=== PATIENT | female | born 1930 | race Caucasian/White ===

== ENCOUNTER → 2018-04-10 | Outpatient (CLI) | payer MEDICARE ==
[~2018-04-10] MED LIST: ATOR10TA52 PO; CALC600T10 PO; DONE10TA40 PO; LEVE250T18 PO
[2018-04-10 15:12] LABS: Basophils # (auto) 0 uL; Basophils % (auto) 0.5 % (0.0-2.0); Eosinophils # (auto) 0.2 uL; Eosinophils % (auto) 2.4 % (0.0-7.0); Hematocrit 36.2 % (36.0-46.0); Lymphocytes # (auto) 2.3 uL; Lymphocytes % (auto) 31.4 % (10.0-50.0); Mean Corpuscular Hemoglobin 29.8 pg (28.0-32.0); Mean Corpuscular Hgb Conc. 33.2 g/dL (32.0-36.0); Mean Corpuscular Volume 89.6 fL (80.0-100.0); Monocytes # (auto) 0.9 uL; Monocytes % (auto) 12.3 % (0.0-12.0); Neutrophils # (auto) 3.9 uL; Neutrophils % (auto) 53.4 % (37.0-80.0); Platelet Count (auto) 250 10^3/uL (140-450); Red Blood Cells 4.04 10^6/uL (4.0-5.20); Red Cell Distribution Width 13.6 % (11.8-14.3); White Blood Cell 7.3 10^3/uL (4.4-10.8)
[2018-04-10 15:53] LABS: Albumin 3.6 g/dL (3.4-5.0); BUN/Creatinine Ratio 14.5; Bilirubin, Total 0.5 mg/dL (0.2-1.0); Calcium 9.2 mg/dL (8.5-10.1); Potassium 4.3 mmol/L (3.5-5.1); Total Protein 7.8 g/dL (6.4-8.2)
== END | disposition home or self-care (01) ==
LOC: LAB 14:52
PROVIDERS: ATTEND Nurse Practitioner
DX: E78.5 Hyperlipidemia, unspecified (principal); E55.9 Vitamin D deficiency, unspecified
CPT/HCPCS: 36415; 80053; 80061; 82306; 85025

== ENCOUNTER 2018-05-29 19:38 | Inpatient (IN) | payer MEDICARE ==
[~2018-05-29] VITALS: Ht 162.6 cm; Wt 70.2 kg
[2018-05-29 20:50] LABS: Basophils # (auto) 0 uL; Basophils % (auto) 0.3 % (0.0-2.0); Eosinophils # (auto) 0 uL; Hematocrit 31.5 % (36.0-46.0); Hemoglobin 10.5 g/dL (12.2-16.2); Lymphocytes # (auto) 1.2 uL; Lymphocytes % (auto) 8.3 % (10.0-50.0); Mean Corpuscular Hemoglobin 30.2 pg (28.0-32.0); Mean Corpuscular Hgb Conc. 33.3 g/dL (32.0-36.0); Mean Corpuscular Volume 90.6 fL (80.0-100.0); Monocytes # (auto) 1.8 uL; Monocytes % (auto) 12.5 % (0.0-12.0); Neutrophils # (auto) 11.5 uL; Neutrophils % (auto) 78.9 % (37.0-80.0); Nucleated Red Blood Cells % 0.1 %; Platelet Count (auto) 211 10^3/uL (140-450); Red Blood Cells 3.48 10^6/uL (4.0-5.20); Red Cell Distribution Width 14.5 % (11.8-14.3); White Blood Cell 14.6 10^3/uL (4.4-10.8)
[2018-05-29 21:04] LABS: INR 0.93 (0.9-1.15); Partial Thromboplastin Time 28.3 sec (23.78-33.04)
[2018-05-29 21:13] LABS: Albumin 3.3 g/dL (3.4-5.0); BUN/Creatinine Ratio 14.8; Calcium 8.8 mg/dL (8.5-10.1); Magnesium 1.9 mg/dL (1.6-2.6); Potassium 5.2 mmol/L (3.5-5.1)
[2018-05-29] MEDS ORDERED: TEMAZEPAM 15 MG CAP PO PRN (21:15)
[2018-05-29] MEDS ORDERED: ACETAMINOPHEN 325 MG TAB PO PRN (21:15)
[2018-05-29 21:22] LABS: Bilirubin, Total 0.5 mg/dL (0.2-1.0); Total Protein 6.9 g/dL (6.4-8.2)
[2018-05-29 22:53] LABS: Urine Bacteria NONE SEEN /hpf (None Seen); Urine Blood Negative /uL (Negative); Urine Mucus FEW (None Seen); Urine Specific Gravity 1.019 (1.001-1.035); Urine WBC <1 /hpf (0 - 5)
[2018-05-29 23:00] VITALS: BP 126/63
[2018-05-29] MEDS: LEVETIRACETAM 500 MG TAB PO SCH (23:35)
[2018-05-29] MEDS: DONEPEZIL HYDROCHLORIDE 5 MG TAB PO SCH (23:35)
[2018-05-29] MEDS: FAMOTIDINE 20 MG TAB PO SCH (23:36)
[2018-05-29] MEDS: ATORVASTATIN 20 MG TAB PO SCH (23:36)
[2018-05-30] MEDS: HYDROcodone-ACET 5/325MG TAB PO PRN ×2 (00:06→19:32)
[2018-05-30 05:18] VITALS: BP 107/51
[2018-05-30 06:32] LABS: Basophils # (auto) 0 uL; Basophils % (auto) 0.2 % (0.0-2.0); Eosinophils # (auto) 0 uL; Eosinophils % (auto) 0.1 % (0.0-7.0); Hematocrit 29.7 % (36.0-46.0); Hemoglobin 9.7 g/dL (12.2-16.2); Lymphocytes % (auto) 23.5 % (10.0-50.0); Mean Corpuscular Hemoglobin 29.7 pg (28.0-32.0); Mean Corpuscular Hgb Conc. 32.6 g/dL (32.0-36.0); Mean Corpuscular Volume 91.3 fL (80.0-100.0); Monocytes # (auto) 2.1 uL; Monocytes % (auto) 16.8 % (0.0-12.0); Neutrophils # (auto) 7.5 uL; Neutrophils % (auto) 59.4 % (37.0-80.0); Platelet Count (auto) 173 10^3/uL (140-450); Red Blood Cells 3.25 10^6/uL (4.0-5.20); Red Cell Distribution Width 14.7 % (11.8-14.3); White Blood Cell 12.7 10^3/uL (4.4-10.8)
[2018-05-30 07:06] LABS: Bilirubin, Total 0.5 mg/dL (0.2-1.0); Calcium 8.3 mg/dL (8.5-10.1); Total Protein 6.3 g/dL (6.4-8.2)
[2018-05-30 09:00] VITALS: BP 97/44
[2018-05-30] MEDS: FAMOTIDINE 20 MG TAB PO SCH (10:22)
[2018-05-30] MEDS: ENOXAPARIN SOD 30 MG/0.3 ML SYRINGE SC SCH (10:23)
[2018-05-30] MEDS: LEVETIRACETAM 500 MG TAB PO SCH ×2 (10:23→22:18)
[2018-05-30] MEDS ORDERED: SODIUM CHLORIDE 0.9% 1,000 ML IV ONE (12:45)
[2018-05-30 13:00] VITALS: BP 97/33
[2018-05-30 13:46] LABS: Urine Bacteria NONE SEEN /hpf (None Seen); Urine Blood TRACE /uL (Negative); Urine Mucus FEW (None Seen); Urine WBC 1 /hpf (0 - 5)
[2018-05-30 17:00] VITALS: BP 104/45
[2018-05-30 20:05] LABS: Protein, Urine 39.2 mg/dL (0.0-11.9)
[2018-05-30] MEDS: DONEPEZIL HYDROCHLORIDE 5 MG TAB PO SCH (22:18)
[2018-05-30] MEDS: ATORVASTATIN 20 MG TAB PO SCH (22:18)
[2018-05-30 22:26] VITALS: BP 126/52
[2018-05-30] MEDS: MORPHINE SULFATE 4 MG/ML SYR/VIAL IV PRN (23:55)
[2018-05-31] VITALS (9 sets, daily range): BP systolic 90–114; BP diastolic 41–68
[2018-05-31] MEDS: MORPHINE SULFATE 4 MG/ML SYR/VIAL IV PRN (04:32)
[2018-05-31 07:21] LABS: Basophils # (auto) 0 uL; Lymphocytes # (auto) 1.9 uL
[2018-05-31 07:26] LABS: Basophils % (auto) 0.3 % (0.0-2.0); Eosinophils # (auto) 0 uL; Eosinophils % (auto) 0.4 % (0.0-7.0); Hematocrit 23.9 % (36.0-46.0); Lymphocytes % (auto) 14.9 % (10.0-50.0); Mean Corpuscular Hemoglobin 29.7 pg (28.0-32.0); Mean Corpuscular Hgb Conc. 33.5 g/dL (32.0-36.0); Mean Corpuscular Volume 88.7 fL (80.0-100.0); Monocytes % (auto) 15.7 % (0.0-12.0); Neutrophils # (auto) 8.9 uL; Neutrophils % (auto) 68.7 % (37.0-80.0); Nucleated Red Blood Cells % 0.1 %; Platelet Count (auto) 114 10^3/uL (140-450); Red Cell Distribution Width 14.5 % (11.8-14.3); White Blood Cell 12.9 10^3/uL (4.4-10.8)
[2018-05-31] MEDS: FAMOTIDINE 20 MG TAB PO SCH (09:56)
[2018-05-31] MEDS: ENOXAPARIN SOD 30 MG/0.3 ML SYRINGE SC SCH (09:56)
[2018-05-31] MEDS: LEVETIRACETAM 500 MG TAB PO SCH ×2 (09:56→23:42)
[2018-05-31 10:24] LABS: % Iron Saturation 8.7 % (15-50); Albumin 2.9 g/dL (3.4-5.0); BUN/Creatinine Ratio 15.3; Calcium 8.1 mg/dL (8.5-10.1); Potassium 4.4 mmol/L (3.5-5.1); Uric Acid 7.6 mg/dL (2.6-6.0)
[2018-05-31 10:27] LABS: Bilirubin, Total 0.3 mg/dL (0.2-1.0); Phosphorus 3.8 mg/dL (2.5-4.90); Total Protein 6.4 g/dL (6.4-8.2)
[2018-05-31] MEDS: ONDANSETRON HCL 4 MG/2 ML VIAL IV PRN (14:08)
[2018-05-31] MEDS ORDERED: FUROSEMIDE 40 MG/4 ML VIAL IV ONE (20:00)
[2018-05-31] MEDS: ATORVASTATIN 20 MG TAB PO SCH (23:42)
[2018-05-31] MEDS: DONEPEZIL HYDROCHLORIDE 5 MG TAB PO SCH (23:42)
[2018-06-01] VITALS (11 sets, daily range): BP systolic 98–122; BP diastolic 37–59
[2018-06-01] MEDS: ONDANSETRON HCL 4 MG/2 ML VIAL IV PRN (07:29)
[2018-06-01] MEDS: MORPHINE SULFATE 4 MG/ML SYR/VIAL IV PRN (07:29)
[2018-06-01] MEDS: HYDROcodone-ACET 5/325MG TAB PO PRN (09:01)
[2018-06-01] MEDS: LEVETIRACETAM 500 MG TAB PO SCH ×2 (09:09→23:10)
[2018-06-01] MEDS: ENOXAPARIN SOD 30 MG/0.3 ML SYRINGE SC SCH (09:09)
[2018-06-01] MEDS: FAMOTIDINE 20 MG TAB PO SCH (09:09)
[2018-06-01 09:11] LABS: Basophils # (auto) 0 uL; Basophils % (auto) 0.3 % (0.0-2.0); Eosinophils # (auto) 0.2 uL; Eosinophils % (auto) 1.8 % (0.0-7.0); Hematocrit 37.7 % (36.0-46.0); Hemoglobin 12.5 g/dL (12.2-16.2); Lymphocytes # (auto) 2.5 uL; Lymphocytes % (auto) 19.5 % (10.0-50.0); Mean Corpuscular Hemoglobin 29.6 pg (28.0-32.0); Mean Corpuscular Hgb Conc. 33.2 g/dL (32.0-36.0); Mean Corpuscular Volume 89.2 fL (80.0-100.0); Monocytes # (auto) 1.8 uL; Monocytes % (auto) 13.7 % (0.0-12.0); Neutrophils # (auto) 8.3 uL; Neutrophils % (auto) 64.7 % (37.0-80.0); Platelet Count (auto) 157 10^3/uL (140-450); Red Blood Cells 4.22 10^6/uL (4.0-5.20); Red Cell Distribution Width 14.7 % (11.8-14.3); White Blood Cell 12.8 10^3/uL (4.4-10.8)
[2018-06-01 09:13] LABS: Albumin 2.9 g/dL (3.4-5.0); BUN/Creatinine Ratio 18.3; Calcium 8.2 mg/dL (8.5-10.1); Potassium 4.3 mmol/L (3.5-5.1)
[2018-06-01 09:15] LABS: Total Protein 6.8 g/dL (6.4-8.2)
[2018-06-01] MEDS: LEVOFLOXACIN 250MG 50 ML IV SCH (10:47)
[2018-06-01] MEDS ORDERED: ALLOPURINOL 100 MG TAB PO ONE (14:15)
[2018-06-01] MEDS: DONEPEZIL HYDROCHLORIDE 5 MG TAB PO SCH (23:10)
[2018-06-01] MEDS: ATORVASTATIN 20 MG TAB PO SCH (23:10)
[2018-06-02 05:17] VITALS: BP 104/57
[2018-06-02 08:30] LABS: Albumin 2.4 g/dL (3.4-5.0); Calcium 8.8 mg/dL (8.5-10.1); Potassium 4.8 mmol/L (3.5-5.1)
[2018-06-02 08:32] LABS: BUN/Creatinine Ratio 19.6; Bilirubin, Total 0.9 mg/dL (0.2-1.0); Total Protein 6.4 g/dL (6.4-8.2)
[2018-06-02 09:12] VITALS: BP 102/50
[2018-06-02] MEDS ORDERED: SODIUM CHLORIDE 0.9% 1,000 ML IV ONE (10:00)
[2018-06-02] MEDS: LEVOFLOXACIN 250MG 50 ML IV SCH (10:00)
[2018-06-02] MEDS: ALLOPURINOL 100 MG TAB PO SCH (10:00)
[2018-06-02] MEDS: FAMOTIDINE 20 MG TAB PO SCH (10:55)
[2018-06-02] MEDS: ENOXAPARIN SOD 30 MG/0.3 ML SYRINGE SC SCH (10:55)
[2018-06-02] MEDS: SODIUM CHLORIDE 0.9% 1,000 ML IV SCH (11:00)
[2018-06-02 13:00] VITALS: BP 112/53
[2018-06-02 13:42] LABS: Basophils # (auto) 0 uL; Basophils % (auto) 0.2 % (0.0-2.0); Eosinophils # (auto) 0.2 uL; Eosinophils % (auto) 1.7 % (0.0-7.0); Hematocrit 34.6 % (36.0-46.0); Hemoglobin 11.9 g/dL (12.2-16.2); Lymphocytes # (auto) 1.4 uL; Lymphocytes % (auto) 13.8 % (10.0-50.0); Mean Corpuscular Hemoglobin 30.6 pg (28.0-32.0); Mean Corpuscular Hgb Conc. 34.5 g/dL (32.0-36.0); Mean Corpuscular Volume 88.7 fL (80.0-100.0); Monocytes # (auto) 1.2 uL; Monocytes % (auto) 12.3 % (0.0-12.0); Neutrophils # (auto) 7.1 uL; Nucleated Red Blood Cells % 0.1 %; Platelet Count (auto) 181 10^3/uL (140-450); Red Cell Distribution Width 14.2 % (11.8-14.3); White Blood Cell 9.9 10^3/uL (4.4-10.8)
[2018-06-02 16:39] VITALS: BP 111/49
[2018-06-02 18:10] LABS: Anion Gap 12 (5-15); Blood Urea Nitrogen 61 mg/dL (7-18); Calcium 7.8 mg/dL (8.5-10.1); Carbon Dioxide 23 mmol/L (21-32); Chloride 106 mmol/L (98-107); GFR African American 19 mL/min; GFR Non-African American 15 mL/min; Glucose 95 mg/dL (74-106); Potassium 4.3 mmol/L (3.5-5.1); Sodium 141 mmol/L (136-145)
[2018-06-02] MEDS: LEVETIRACETAM 500 MG TAB PO SCH ×2 (19:42→22:39)
[2018-06-02 22:00] VITALS: BP 125/61
[2018-06-02] MEDS: ATORVASTATIN 20 MG TAB PO SCH (22:39)
[2018-06-02] MEDS: DONEPEZIL HYDROCHLORIDE 5 MG TAB PO SCH (22:39)
[2018-06-03] MEDS: SODIUM CHLORIDE 0.9% 1,000 ML IV SCH ×2 (01:38→22:06)
[2018-06-03 05:00] VITALS: BP 116/58
[2018-06-03 08:28] LABS: Potassium 4.4 mmol/L (3.5-5.1)
[2018-06-03] MEDS ORDERED: HYDROcodone-ACET 10/325MG TAB PO ONE (08:30)
[2018-06-03 08:32] LABS: BUN/Creatinine Ratio 22.6; Calcium 7.9 mg/dL (8.5-10.1)
[2018-06-03 09:00] VITALS: BP 124/62
[2018-06-03] MEDS: LEVETIRACETAM 500 MG TAB PO SCH ×2 (09:38→21:52)
[2018-06-03] MEDS: LEVOFLOXACIN 250MG 50 ML IV SCH (09:38)
[2018-06-03] MEDS: FAMOTIDINE 20 MG TAB PO SCH (09:38)
[2018-06-03] MEDS: ENOXAPARIN SOD 30 MG/0.3 ML SYRINGE SC SCH (09:38)
[2018-06-03] MEDS: ALLOPURINOL 100 MG TAB PO SCH (09:38)
[2018-06-03] MEDS: MORPHINE SULFATE 4 MG/ML SYR/VIAL IV PRN ×6 (12:25→21:53)
[2018-06-03] MEDS: HYDROcodone-ACET 10/325MG TAB PO PRN ×2 (12:25→16:40)
[2018-06-03 13:00] VITALS: BP 111/59
[2018-06-03] MEDS ORDERED: CLINDAMYCIN 600MG IV 50 ML IV ONE (14:55)
[2018-06-03] MEDS ORDERED: fentaNYL CITRATE 100 MCG/2 ML VL ONE ×2 (15:28→16:02)
[2018-06-03] MEDS ORDERED: MIDAZOLAM HCL 1MG/1ML-2 ML VIAL ONE (15:28)
[2018-06-03] MEDS ORDERED: ETOMIDATE (2MG/ML) 20ML VIAL IV ONE (15:48)
[2018-06-03] MEDS ORDERED: hydrALAZINE HCL 20 MG/ML VL IV PRN (17:00)
[2018-06-03] MEDS ORDERED: ePHEDrine SULFATE 50 MG/ML AMP IV PRN (17:00)
[2018-06-03] MEDS ORDERED: ONDANSETRON HCL 4 MG/2 ML VIAL IV ONE (17:00)
[2018-06-03] MEDS: ATORVASTATIN 20 MG TAB PO SCH (21:52)
[2018-06-03] MEDS: DONEPEZIL HYDROCHLORIDE 5 MG TAB PO SCH (21:52)
[2018-06-03] MEDS: CLINDAMYCIN 600MG IV 50 ML IV SCH (21:53)
[2018-06-03 22:00] VITALS: BP 124/51
[2018-06-04] MEDS: SODIUM CHLORIDE 0.9% 1,000 ML IV SCH ×2 (03:00→16:44)
[2018-06-04 05:00] VITALS: BP 106/55
[2018-06-04] MEDS: CLINDAMYCIN 600MG IV 50 ML IV SCH ×3 (05:38→22:40)
[2018-06-04 08:24] LABS: Calcium 8.4 mg/dL (8.5-10.1); Potassium 4.3 mmol/L (3.5-5.1)
[2018-06-04 08:25] VITALS: BP 97/49
[2018-06-04] MEDS: HYDROcodone-ACET 10/325MG TAB PO PRN ×3 (08:36→17:01)
[2018-06-04] MEDS: MORPHINE SULFATE 4 MG/ML SYR/VIAL IV PRN (08:36)
[2018-06-04 08:40] LABS: Hematocrit 33.1 % (36.0-46.0); Hemoglobin 10.7 g/dL (12.2-16.2)
[2018-06-04] MEDS: LEVOFLOXACIN 250MG 50 ML IV SCH (10:06)
[2018-06-04] MEDS: LEVETIRACETAM 500 MG TAB PO SCH ×2 (10:06→22:41)
[2018-06-04] MEDS: ENOXAPARIN SOD 30 MG/0.3 ML SYRINGE SC SCH (10:07)
[2018-06-04] MEDS: DOCUSATE SOD 100 MG CAP PO PRN (10:07)
[2018-06-04] MEDS: FAMOTIDINE 20 MG TAB PO SCH (10:07)
[2018-06-04] MEDS: ALLOPURINOL 100 MG TAB PO SCH (10:07)
[2018-06-04] MEDS: Ensure Enlive Chocolate 8oz Bottle PO SCH ×2 (12:00→17:47)
[2018-06-04 12:18] VITALS: BP 111/48
[2018-06-04 17:00] VITALS: BP 106/47
[2018-06-04 22:00] VITALS: BP 100/51
[2018-06-04] MEDS: DONEPEZIL HYDROCHLORIDE 5 MG TAB PO SCH (22:40)
[2018-06-04] MEDS: ATORVASTATIN 20 MG TAB PO SCH (22:41)
[2018-06-05] VITALS (24 sets, daily range): BP systolic 88–129; BP diastolic 38–71
[2018-06-05] MEDS: MORPHINE SULFATE 4 MG/ML SYR/VIAL IV PRN (04:55)
[2018-06-05] MEDS: ONDANSETRON HCL 4 MG/2 ML VIAL IV PRN (05:03)
[2018-06-05] MEDS: SODIUM CHLORIDE 0.9% 1,000 ML IV SCH ×3 (05:04→22:25)
[2018-06-05] MEDS: CLINDAMYCIN 600MG IV 50 ML IV SCH ×2 (05:04→13:50)
[2018-06-05] MEDS: HYDROcodone-ACET 10/325MG TAB PO PRN (06:22)
[2018-06-05] MEDS: Ensure Enlive Chocolate 8oz Bottle PO SCH ×2 (08:00→12:00)
[2018-06-05] MEDS: FAMOTIDINE 20 MG TAB PO SCH (10:10)
[2018-06-05] MEDS: ENOXAPARIN SOD 30 MG/0.3 ML SYRINGE SC SCH (10:10)
[2018-06-05] MEDS: LEVETIRACETAM 500 MG TAB PO SCH ×2 (10:10→21:21)
[2018-06-05] MEDS: ALLOPURINOL 100 MG TAB PO SCH (10:10)
[2018-06-05 10:23] LABS: BUN/Creatinine Ratio 24.6; Calcium 8.3 mg/dL (8.5-10.1); Hematocrit 31.3 % (36.0-46.0); Hemoglobin 10.4 g/dL (12.2-16.2); Potassium 3.9 mmol/L (3.5-5.1)
[2018-06-05] MEDS ORDERED: SODIUM CHLORIDE 0.9% 1,000 ML IV SCH (11:00)
[2018-06-05] MEDS ORDERED: SODIUM CHLORIDE 0.9% 500 ML IV ONE (14:15)
[2018-06-05] MEDS: NOREPINEPHRINE 8 MG/250ML KIT 250 ML IV SCH (17:05)
[2018-06-05] MEDS ORDERED: NOREPINEPHRINE 8 MG/250ML KIT 250 ML IV ONE (17:30)
[2018-06-05 17:40] LABS: Basophils # (auto) 0 uL; Basophils % (auto) 0.3 % (0.0-2.0); Eosinophils # (auto) 0.2 uL; Eosinophils % (auto) 2.3 % (0.0-7.0); Hemoglobin 8.6 g/dL (12.2-16.2); Lymphocytes # (auto) 0.6 uL; Lymphocytes % (auto) 8.4 % (10.0-50.0); Mean Corpuscular Hemoglobin 30.3 pg (28.0-32.0); Mean Corpuscular Hgb Conc. 33.1 g/dL (32.0-36.0); Mean Corpuscular Volume 91.5 fL (80.0-100.0); Monocytes # (auto) 1.1 uL; Monocytes % (auto) 14.7 % (0.0-12.0); Neutrophils # (auto) 5.7 uL; Neutrophils % (auto) 74.3 % (37.0-80.0); Platelet Count (auto) 168 10^3/uL (140-450); Red Blood Cells 2.84 10^6/uL (4.0-5.20); Red Cell Distribution Width 14.2 % (11.8-14.3); White Blood Cell 7.7 10^3/uL (4.4-10.8)
[2018-06-05 17:52] LABS: Albumin 1.5 g/dL (3.4-5.0); Calcium 7.6 mg/dL (8.5-10.1); Potassium 4.2 mmol/L (3.5-5.1)
[2018-06-05 17:57] LABS: Bilirubin, Total 0.6 mg/dL (0.2-1.0); Total Protein 4.6 g/dL (6.4-8.2)
[2018-06-05] MEDS: Nepro With Carbsteady ButterPecan 8oz Carton PO SCH (18:00)
[2018-06-05] MEDS: ATORVASTATIN 20 MG TAB PO SCH (21:21)
[2018-06-05] MEDS: DONEPEZIL HYDROCHLORIDE 5 MG TAB PO SCH (21:21)
[2018-06-06] VITALS (62 sets, daily range): BP systolic 87–142; BP diastolic 32–93
[2018-06-06] MEDS: HYDROcodone-ACET 10/325MG TAB PO PRN ×2 (04:57→15:26)
[2018-06-06] MEDS: SODIUM CHLORIDE 0.9% 1,000 ML IV SCH ×2 (05:00→12:15)
[2018-06-06 07:16] LABS: Hematocrit 30.7 % (36.0-46.0); Hemoglobin 10.1 g/dL (12.2-16.2)
[2018-06-06 07:42] LABS: BUN/Creatinine Ratio 24.5; Calcium 8.3 mg/dL (8.5-10.1); Potassium 3.9 mmol/L (3.5-5.1)
[2018-06-06] MEDS: Nepro With Carbsteady ButterPecan 8oz Carton PO SCH ×3 (08:00→18:00)
[2018-06-06] MEDS: LEVOFLOXACIN 250MG 50 ML IV SCH (09:48)
[2018-06-06] MEDS: DOCUSATE SOD 100 MG CAP PO PRN ×2 (09:49→23:05)
[2018-06-06] MEDS: ENOXAPARIN SOD 30 MG/0.3 ML SYRINGE SC SCH (09:49)
[2018-06-06] MEDS: FAMOTIDINE 20 MG TAB PO SCH (09:49)
[2018-06-06] MEDS: ALLOPURINOL 100 MG TAB PO SCH (09:49)
[2018-06-06] MEDS: LEVETIRACETAM 500 MG TAB PO SCH ×2 (09:51→21:55)
[2018-06-06] MEDS: PHENYLEPHRINE HCL 10 MG/ML VL ONE (10:20)
[2018-06-06] MEDS ORDERED: PHENYLEPHRINE IV 250 ML IV ONE (10:20)
[2018-06-06] MEDS: MORPHINE SULFATE 4 MG/ML SYR/VIAL IV PRN ×2 (16:09→23:25)
[2018-06-06] MEDS: NOREPINEPHRINE 8 MG/250ML KIT 250 ML IV SCH (17:05)
[2018-06-06] MEDS: ATORVASTATIN 20 MG TAB PO SCH (21:55)
[2018-06-06] MEDS: DONEPEZIL HYDROCHLORIDE 5 MG TAB PO SCH (21:55)
[2018-06-07] VITALS (23 sets, daily range): BP systolic 86–129; BP diastolic 32–58
[2018-06-07] MEDS: LORazepam 2MG/ML-1ML VIAL IV PRN (01:38)
[2018-06-07] MEDS: SODIUM CHLORIDE 0.9% 1,000 ML IV SCH ×2 (01:41→16:55)
[2018-06-07] MEDS: Nepro With Carbsteady ButterPecan 8oz Carton PO SCH ×3 (08:00→18:00)
[2018-06-07 08:37] LABS: Hematocrit 28.4 % (36.0-46.0); Hemoglobin 9.3 g/dL (12.2-16.2)
[2018-06-07 08:56] LABS: BUN/Creatinine Ratio 23.2; Calcium 7.9 mg/dL (8.5-10.1); Potassium 4.1 mmol/L (3.5-5.1)
[2018-06-07] MEDS: ENOXAPARIN SOD 30 MG/0.3 ML SYRINGE SC SCH (10:00)
[2018-06-07] MEDS: HYDROcodone-ACET 10/325MG TAB PO PRN ×2 (12:51→18:55)
[2018-06-07] MEDS: LEVETIRACETAM 500 MG TAB PO SCH ×2 (12:53→22:00)
[2018-06-07] MEDS: ALLOPURINOL 100 MG TAB PO SCH (12:53)
[2018-06-07] MEDS: FAMOTIDINE 20 MG TAB PO SCH (12:54)
[2018-06-07] MEDS ORDERED: CYANOCOBALAMIN (B-12) 1000 MCG/1 ML VIAL IM ONE (14:00)
[2018-06-07] MEDS: SODIUM BICARBONATE 650 MG TAB PO SCH ×2 (14:00→22:00)
[2018-06-07] MEDS: NOREPINEPHRINE 8 MG/250ML KIT 250 ML IV SCH (17:05)
[2018-06-07] MEDS: DONEPEZIL HYDROCHLORIDE 5 MG TAB PO SCH (22:00)
[2018-06-07] MEDS: ATORVASTATIN 20 MG TAB PO SCH (22:00)
[2018-06-08 05:44] VITALS: BP 116/53
[2018-06-08] MEDS: SODIUM BICARBONATE 650 MG TAB PO SCH ×3 (06:28→22:00)
[2018-06-08 06:34] LABS: Albumin 1.5 g/dL (3.4-5.0); BUN/Creatinine Ratio 24.1; Calcium 7.7 mg/dL (8.5-10.1)
[2018-06-08 06:37] LABS: Bilirubin, Total 0.6 mg/dL (0.2-1.0); Total Protein 4.6 g/dL (6.4-8.2)
[2018-06-08] MEDS: Nepro With Carbsteady ButterPecan 8oz Carton PO SCH ×3 (08:00→18:00)
[2018-06-08 08:41] LABS: Basophils # (auto) 0 uL; Basophils % (auto) 0.4 % (0.0-2.0); Eosinophils # (auto) 0.2 uL; Eosinophils % (auto) 2.7 % (0.0-7.0); Hematocrit 26.4 % (36.0-46.0); Hemoglobin 8.7 g/dL (12.2-16.2); Lymphocytes # (auto) 0.9 uL; Lymphocytes % (auto) 12.3 % (10.0-50.0); Mean Corpuscular Hemoglobin 30.1 pg (28.0-32.0); Mean Corpuscular Hgb Conc. 32.9 g/dL (32.0-36.0); Mean Corpuscular Volume 91.7 fL (80.0-100.0); Monocytes # (auto) 0.9 uL; Monocytes % (auto) 12.4 % (0.0-12.0); Neutrophils # (auto) 5.2 uL; Neutrophils % (auto) 72.2 % (37.0-80.0); Platelet Count (auto) 242 10^3/uL (140-450); Red Blood Cells 2.88 10^6/uL (4.0-5.20); Red Cell Distribution Width 14.7 % (11.8-14.3); White Blood Cell 7.2 10^3/uL (4.4-10.8)
[2018-06-08 08:57] VITALS: BP 106/50
[2018-06-08] MEDS: FAMOTIDINE 20 MG TAB PO SCH (10:34)
[2018-06-08] MEDS: LEVOFLOXACIN 250MG 50 ML IV SCH (10:34)
[2018-06-08] MEDS: CYANOCOBALAMIN 500 MCG TAB PO SCH (10:36)
[2018-06-08] MEDS: ALLOPURINOL 100 MG TAB PO SCH (10:36)
[2018-06-08] MEDS: LEVETIRACETAM 500 MG TAB PO SCH (10:37)
[2018-06-08] MEDS: ENOXAPARIN SOD 30 MG/0.3 ML SYRINGE SC SCH (10:37)
[2018-06-08] MEDS: HYDROcodone-ACET 10/325MG TAB PO PRN (10:38)
[2018-06-08 13:15] VITALS: BP 119/49
[2018-06-08] MEDS: SODIUM CHLORIDE 0.9% 1,000 ML IV SCH (14:15)
[2018-06-08] MEDS: ATORVASTATIN 20 MG TAB PO SCH (22:00)
[2018-06-08] MEDS: DONEPEZIL HYDROCHLORIDE 5 MG TAB PO SCH (22:00)
[2018-06-08] MEDS: LORazepam 2MG/ML-1ML VIAL IV PRN (22:03)
[2018-06-08 22:12] VITALS: BP 187/77
[2018-06-09] VITALS (11 sets, daily range): BP systolic 115–147; BP diastolic 53–87
[2018-06-09] MEDS: SODIUM BICARBONATE 650 MG TAB PO SCH ×3 (06:00→21:38)
[2018-06-09] MEDS: SODIUM CHLORIDE 0.9% 1,000 ML IV SCH (06:19)
[2018-06-09 07:24] LABS: Basophils # (auto) 0 uL; Basophils % (auto) 0.4 % (0.0-2.0); Eosinophils # (auto) 0.1 uL; Eosinophils % (auto) 1.3 % (0.0-7.0); Hematocrit 26.2 % (36.0-46.0); Hemoglobin 8.8 g/dL (12.2-16.2); Lymphocytes # (auto) 0.8 uL; Lymphocytes % (auto) 10.2 % (10.0-50.0); Mean Corpuscular Hemoglobin 30.5 pg (28.0-32.0); Mean Corpuscular Hgb Conc. 33.6 g/dL (32.0-36.0); Mean Corpuscular Volume 90.7 fL (80.0-100.0); Monocytes % (auto) 12.7 % (0.0-12.0); Neutrophils # (auto) 5.8 uL; Neutrophils % (auto) 75.4 % (37.0-80.0); Platelet Count (auto) 287 10^3/uL (140-450); Red Blood Cells 2.89 10^6/uL (4.0-5.20); Red Cell Distribution Width 14.4 % (11.8-14.3); White Blood Cell 7.7 10^3/uL (4.4-10.8)
[2018-06-09 07:50] LABS: Albumin 1.7 g/dL (3.4-5.0); Calcium 8.5 mg/dL (8.5-10.1)
[2018-06-09 07:54] LABS: BUN/Creatinine Ratio 23.5; Bilirubin, Total 0.6 mg/dL (0.2-1.0); Total Protein 5.2 g/dL (6.4-8.2)
[2018-06-09] MEDS: ENOXAPARIN SOD 30 MG/0.3 ML SYRINGE SC SCH (10:00)
[2018-06-09] MEDS: CYANOCOBALAMIN 500 MCG TAB PO SCH (10:00)
[2018-06-09] MEDS: LEVETIRACETAM 500 MG TAB PO SCH (10:00)
[2018-06-09] MEDS: ALLOPURINOL 100 MG TAB PO SCH (10:00)
[2018-06-09] MEDS: FAMOTIDINE 20 MG TAB PO SCH (10:00)
[2018-06-09] MEDS: SOD CHL 0.45% 1,000 ML IV SCH (11:12)
[2018-06-09] MEDS: Nepro With Carbsteady ButterPecan 8oz Carton PO SCH ×3 (11:52→19:36)
[2018-06-09] MEDS: FUROSEMIDE 40 MG TAB PO SCH (14:08)
[2018-06-09] MEDS: ATORVASTATIN 20 MG TAB PO SCH (21:38)
[2018-06-09] MEDS: DONEPEZIL HYDROCHLORIDE 5 MG TAB PO SCH (21:38)
[2018-06-10 05:06] VITALS: BP 128/63
[2018-06-10] MEDS: SODIUM BICARBONATE 650 MG TAB PO SCH (05:23)
[2018-06-10 07:26] LABS: Basophils # (auto) 0 uL; Basophils % (auto) 0.3 % (0.0-2.0); Eosinophils # (auto) 0.2 uL; Eosinophils % (auto) 2.1 % (0.0-7.0); Hematocrit 33.5 % (36.0-46.0); Hemoglobin 11.2 g/dL (12.2-16.2); Lymphocytes % (auto) 12.6 % (10.0-50.0); Mean Corpuscular Hemoglobin 29.9 pg (28.0-32.0); Mean Corpuscular Hgb Conc. 33.4 g/dL (32.0-36.0); Mean Corpuscular Volume 89.5 fL (80.0-100.0); Monocytes # (auto) 1.1 uL; Monocytes % (auto) 13.9 % (0.0-12.0); Neutrophils # (auto) 5.7 uL; Neutrophils % (auto) 71.1 % (37.0-80.0); Platelet Count (auto) 292 10^3/uL (140-450); Red Blood Cells 3.74 10^6/uL (4.0-5.20); Red Cell Distribution Width 14.6 % (11.8-14.3)
[2018-06-10 07:49] LABS: Potassium 3.6 mmol/L (3.5-5.1)
[2018-06-10 07:59] LABS: Albumin 1.7 g/dL (3.4-5.0); BUN/Creatinine Ratio 24.2; Bilirubin, Total 0.8 mg/dL (0.2-1.0); Calcium 8.3 mg/dL (8.5-10.1); Total Protein 5.1 g/dL (6.4-8.2)
[2018-06-10] MEDS: Nepro With Carbsteady ButterPecan 8oz Carton PO SCH ×2 (08:00→13:29)
[2018-06-10 08:55] VITALS: BP 145/67
[2018-06-10] MEDS: SOD CHL 0.45% 1,000 ML IV SCH (09:40)
[2018-06-10] MEDS: LEVOFLOXACIN 250MG 50 ML IV SCH (09:55)
[2018-06-10] MEDS: LEVETIRACETAM 500 MG TAB PO SCH (09:56)
[2018-06-10] MEDS: ENOXAPARIN SOD 30 MG/0.3 ML SYRINGE SC SCH (09:56)
[2018-06-10] MEDS: CYANOCOBALAMIN 500 MCG TAB PO SCH (09:57)
[2018-06-10] MEDS: FUROSEMIDE 40 MG TAB PO SCH (09:57)
[2018-06-10] MEDS: ALLOPURINOL 100 MG TAB PO SCH (09:57)
[2018-06-10] MEDS: FAMOTIDINE 20 MG TAB PO SCH (09:57)
[2018-06-10] MEDS ORDERED: SOD CHL 0.45% WITH 20MEQ KCL 1,000 ML IV SCH (11:00)
[2018-06-10 13:06] VITALS: BP 132/42
[2018-06-10 16:43] VITALS: BP 129/60
== END 2018-06-10 16:50 | DRG 480 ==
LOC: EDBD 19:38 → ER 19:48 → EAST 19:49 → ICU WEST 06-05 17:29 → TELE-CENTR 06-07 20:49
PROVIDERS: ADMIT Nurse Practitioner; ATTEND Family Medicine
PROC: 30233N1 Transfusion of Nonautologous Red Blood Cells into Peripheral Vein, Percutaneous Approach (ICD-10-PCS; principal; 2018-05-31)
PROC: 0QS706Z Reposition Left Upper Femur with Intramedullary Internal Fixation Device, Open Approach (ICD-10-PCS; 2018-06-03)
PROC: 0YU Anatomical Regions, Lower Extremities, Supplement (ICD-10-PCS; 2018-06-03)
DX: S72.142A Displaced intertrochanteric fracture of left femur, initial encounter for closed fracture (principal); G93.41 Metabolic encephalopathy; N18.4 Chronic kidney disease, stage 4 (severe); I42.9 Cardiomyopathy, unspecified; N17.9 Acute kidney failure, unspecified; E87.2 Acidosis; E87.0 Hyperosmolality and hypernatremia; E44.1 Mild protein-calorie malnutrition; I12.9 Hypertensive chronic kidney disease with stage 1 through stage 4 chronic kidney disease, or unspecified chronic kidney disease; E16.2 Hypoglycemia, unspecified; D64.9 Anemia, unspecified; E61.1 Iron deficiency; F03.90 Unspecified dementia, unspecified severity, without behavioral disturbance, psychotic disturbance, mood disturbance, and anxiety; W01.0XXA Fall on same level from slipping, tripping and stumbling without subsequent striking against object, initial encounter; Z95.0 Presence of cardiac pacemaker; E03.9 Hypothyroidism, unspecified; E78.00 Pure hypercholesterolemia, unspecified; G40.909 Epilepsy, unspecified, not intractable, without status epilepticus; N27.1 Small kidney, bilateral; Z79.899 Other long term (current) drug therapy; Z82.0 Family history of epilepsy and other diseases of the nervous system; Z87.81 Personal history of (healed) traumatic fracture; Z90.710 Acquired absence of both cervix and uterus; Z98.41 Cataract extraction status, right eye; Z98.42 Cataract extraction status, left eye; Y92.009 Unspecified place in unspecified non-institutional (private) residence as the place of occurrence of the external cause; Z88.0 Allergy status to penicillin; Z90.49 Acquired absence of other specified parts of digestive tract; Z68.26 Body mass index [BMI] 26.0-26.9, adult
CPT/HCPCS: 36415; 70450; 71045; 73502; 74176; 76001; 76775; 78582; 80048; 80053; 81001; 82306; 82570; 83540; 83550; 83735; 84100; 84156; 84300; 84443; 84484; 84550; 85014; 85018; 85025; 85379; 85610; 85730; 86850; 86900; 86901; 86920; 87040; 87081; 93005; 93306; 93971; 94761; 95819; 96361; 96374; 96375; 97110; 97163; 97530; A6257; G0378; J2250; J2405; J3490